=== PATIENT | female | born 1995 | race Two or more races ===

== ENCOUNTER 2019-05-31 14:51 | Outpatient (CLI) | payer OTHER | END 2019-05-31 14:56 | disposition home or self-care (01) | LOC: SONOGRAMA 14:51 | DX: N94.89 Other specified conditions associated with female genital organs and menstrual cycle (principal) ==

== ENCOUNTER → 2019-12-13 | Outpatient (CLI) | payer OTHER | END | disposition home or self-care (01) | LOC: TOM 09:55 | PROVIDERS: ATTEND Obstetrics & Gynecology | DX: N94.4 Primary dysmenorrhea (principal) ==